=== PATIENT | female | born 1975 | race Caucasian/White ===

== ENCOUNTER 2017-01-14 17:08 | Observation (INO) | payer OTHER ==
[2017-01-14] MEDS ORDERED: ONDANSETRON 4 MG/2 ML VIAL IVPUSH ONE (17:21)
[2017-01-14] MEDS ORDERED: SODIUM CHLORIDE 0.9% 1000 ML INFUS.BAG IV ONE ×2 (17:21→18:24)
--- NOTE | 2017-01-14 17:21 | PDOC ---
History of Present Illness - General History Source: Patient Exam Limitations: Other (seizing) - History of Present Illness Initial Comments: 01/14/17 17:25 The patient is a 41 year old female with a significant past medical history of seizure disorder, presenting to the Emergency Department with abdominal pain for a few days. As per EMS, the patient called an ambulance for severe abdominal pain, when EMS arrived she was hunched over in pain. EMS reports that she then had a seizure, which resolved while in the ambulance. On arrival patient was possible seizing, or pseudo-seizing, and was seen on arrival. She admits to stabbing abdominal pain, 10/10 in intensity, toward the center of her abdomen which she can only describe as similar to when she had H pylori. She reports that she has thrown up 10 times over the past two days which she believes was food poisoning. The patient denies diarrhea, or constipation. Patient denies fever, cough, and chills. Patient denies dysuria. Surgical Hx: Csection, ovarian cyst <Kortney Barajas - Last Filed: 01/14/17 17:24> - General History Source: Patient <Arabella Graff - Last Filed: 01/14/17 18:46> <Marcia Leonard - Last Filed: 01/15/17 05:48> - General Stated Complaint: SEIZURE Time Seen by Provider: 01/14/17 17:15 Past History <Kortney Barajas - Last Filed: 01/14/17 17:24> - Past Medical History Disorders: Yes (ovarian cyst) Seizures: Yes - Surgical History Abdominal Surgery: Yes (RIGHT OVARY?) - Reproductive History (#): 4 Para: 3 - Psycho/Social/Smoking Cessation Hx Anxiety: Yes Suicidal Ideation: No Smoking Status: No Smoking History: Former smoker Have you smoked in the past 12 months: Yes Number of Cigarettes Smoked Daily: 3 If you are a former smoker, when did you quit?: 2 weeks 'Breaking Loose' booklet given: 05/16/13 Hx Alcohol Use: Yes (OCCASIONALLY) Drug/Substance Use Hx: No Substance Use Type: Alcohol Hx Substance Use Treatment: No <Arabella Graff - Last Filed: 01/14/17 18:46> <Marcia Leonard - Last Filed: 01/15/17 05:48> - Past Medical History Allergies/Adverse Reactions: Allergies Allergy/AdvReac Type Severity Reaction Status Date / Time fluticasone propionate Allergy Severe Verified 01/14/17 17:37 [From Advair Diskus] salmeterol xinafoate Allergy Severe Verified 01/14/17 17:37 [From Advair Diskus] Home Medications: Ambulatory Orders NK [No Known Home Medication] 01/14/17 Review of Systems - Review of Systems Able to Perform ROS?: Yes Comments:: 01/14/17 17:28 CONSTITUTIONAL: Absent: fever, chills, diaphoresis, generalized weakness, malaise, loss of appetite HEENT: Absent: rhinorrhea, nasal congestion, throat pain, throat swelling, difficulty swallowing, mouth swelling, ear pain, eye pain, visual Changes CARDIOVASCULAR: Absent: chest pain, syncope, palpitations, irregular heart rate, lightheadedness , peripheral edema RESPIRATORY: Absent: cough, shortness of breath, dyspnea with exertion, orthopnea, wheezing, stridor, hemoptysis GASTROINTESTINAL: Present: + abdominal pain, + nausea, + vomiting Absent: abdominal distension, diarrhea, constipation, melena, hematochezia GENITOURINARY: Absent: dysuria, frequency, urgency, hesitancy, hematuria, flank pain, genital pain MUSCULOSKELETAL: Absent: myalgia, arthralgia, joint swelling SKIN: Absent: rash, itching, pallor HEMATOLOGIC/IMMUNOLOGIC: Absent: easy bleeding, easy bruising, lymphadenopathy, frequent infections ENDOCRINE: Absent: unexplained weight gain, unexplained weight loss, heat intolerance, cold intolerance NEUROLOGIC: Present: + seizure as per EMS Absent: headache, focal weakness or paresthesias, dizziness, unsteady gait, mental status changes, bladder or bowel incontinence PSYCHIATRIC: Absent: anxiety, depression, suicidal or homicidal ideation, hallucinations. <Kortney Barajas - Last Filed: 01/14/17 17:24> *Physical Exam - Physical Exam Comments: 01/14/17 17:25 GENERAL: Well developed, well nourished. Awake and alert. In no acute distress. HEENT: Normocephalic, atraumatic. PERRLA, EOMI. No conjunctival pallor. Sclera are non- icteric. Moist mucous membranes. Oropharynx is clear. NECK: Supple. Full ROM. No JVD. Carotid pulses 2+ and symmetric, without bruits. No thyromegaly. No lymphadenopathy. CARDIOVASCULAR: Regular rate and rhythm. No murmurs, rubs, or gallops. Distal pulses are 2+ and symmetric. PULMONARY: No evidence of respiratory distress. Lungs clear to auscultation bilaterally. No wheezing, rales or rhonchi. ABDOMINAL: LLQ suprapubic tenderness, no rebound, no guarding. Soft. Non-distended. No organomegaly. Normoactive bowel sounds. MUSCULOSKELETAL Normal range of motion at all joints. No bony deformities or tenderness. No CVA tenderness. EXTREMITIES: Extremities warm and well perfused. No cyanosis. No clubbing. No edema. No calf tenderness. SKIN: Warm and dry. Normal capillary refill. No rashes. No jaundice. NEUROLOGICAL: Alert, awake, appropriate. Moving all four extremities. Cranial nerves 2-12 intact. Normoreflexic in the upper and lower extremities. Normal speech. PSYCHIATRIC: Cooperative. Good eye contact. Appropriate mood and affect. <oKrtney Barajas - Last Filed: 01/14/17 17:24> - Vital Signs Last Vital Signs Temp Pulse Resp BP Pulse Ox 98.5 F 83 16 105/72 100 01/14/17 17:20 01/14/17 19:33 01/14/17 19:33 01/14/17 19:33 01/14/17 19:33 <Marcia Leonard - Last Filed: 01/15/17 05:48> ED Treatment Course - LABORATORY CBC & Chemistry Diagram: 01/14/17 17:25 01/14/17 17:25 <Arabella Graff - Last Filed: 01/14/17 18:46> - LABORATORY CBC & Chemistry Diagram: 01/14/17 17:25 01/14/17 17:25 - ADDITIONAL ORDERS Additional order review: Laboratory Results 01/14/17 01/14/17 01/14/17 18:25 18:25 17:25 Sodium Potassium Chloride Carbon Dioxide Anion Gap BUN Creatinine Creat Clearance w eGFR Random Glucose Lactic Acid 5.7 H* Calcium Total Bilirubin AST ALT Alkaline Phosphatase Total Protein Albumin Urine Color Yellow Urine Appearance Cloudy Urine pH 8.0 D Ur Specific [place] 1.015 Urine Protein Negative Urine Glucose (UA) Negative Urine Ketones 1+ H Urine Blood Negative Urine Nitrite Negative Urine Bilirubin Negative Urine Urobilinogen Negative Ur Leukocyte Esterase Negative Urine HCG, Qual Negative Opiates Screen Negative Methadone Screen Negative Barbiturate Screen Negative Phencyclidine Screen Negative Ur Amphetamines Screen Negative MDMA (Ecstasy) Screen Negative Benzodiazepines Screen Negative Cocaine Screen Negative U Marijuana (THC) Screen Positive 01/14/17 17:25 Sodium 141 Potassium 3.7 Chloride 102 Carbon Dioxide 23 Anion Gap 16 BUN 9 D Creatinine 0.9 D Creat Clearance w eGFR > 60 Random Glucose 108 H Lactic Acid Calcium 9.6 Total Bilirubin 0.4 D AST 15 D ALT 16 D Alkaline Phosphatase 68 D Total Protein 7.7 Albumin 4.3 D Urine Color Urine Appearance Urine pH Ur Specific [place] Urine Protein Urine Glucose (UA) Urine Ketones Urine Blood Urine Nitrite Urine Bilirubin Urine Urobilinogen Ur Leukocyte Esterase Urine HCG, Qual Opiates Screen Methadone Screen Barbiturate Screen Phencyclidine Screen Ur Amphetamines Screen MDMA (Ecstasy) Screen Benzodiazepines Screen Cocaine Screen U Marijuana (THC) Screen 01/14/17 17:25 RBC 4.89 MCV 83.8 MCHC 32.9 RDW 14.9 D MPV 8.5 Neutrophils % 65.2 Lymphocytes % 26.3 D Monocytes % 6.4 Eosinophils % 1.4 Basophils % 0.7 - Medications Given in the ED: ED Medications Discontinued Medications Generic Name Dose Route Start Last Admin Trade Name Freq PRN Reason Stop Dose Admin Diphenhydramine HCl 25 mg 01/14/17 18:47 01/14/17 18:50 Benadryl Injection - IVPB 01/14/17 18:48 25 mg ONCE ONE Administration Lorazepam 2 mg 01/14/17 17:26 01/14/17 17:15 Ativan Injection - IM 01/14/17 17:27 2 mg ONCE ONE Administration Metoclopramide HCl 10 mg 01/14/17 18:47 01/14/17 18:50 Reglan Injection - IVPB 01/14/17 18:48 10 mg ONCE ONE Administration Ondansetron HCl 4 mg 01/14/17 17:21 01/14/17 17:30 Zofran Injection IVPUSH 01/14/17 17:22 4 mg ONCE ONE Administration Sodium Chloride 1,000 ml 01/14/17 17:21 01/14/17 17:30 Normal Saline - IV 01/14/17 17:22 1,000 ml ONCE ONE Administration Sodium Chloride 1,000 ml 01/14/17 18:24 01/14/17 19:28 Normal Saline - IV 01/14/17 18:25 1,000 ml ONCE ONE Administration <Marcia Leonard - Last Filed: 01/15/17 05:48> Medical Decision Making - Medical Decision Making 01/14/17 17:17 41 yo F with h/o siezure disorder, ovarian cyst, here with EMS co abdominal pain. pt states started today, has had several epsiodes of emesis. was hunched over when EMS arrived. pt states generalized pain, unable to characterize. states similar H Pylori pain. no diarrhea. no f/c no urinary complaints. no f/ c. no other complaints. on exam pt having seizure like activity on arrival. however was intermittently grabbing items during sieuzre like activity. lasted few minutes. no postictal period. immediately following awake, alert, skin warm and dry. CTAB no wheeze no crackles. heart RRR no mr/g/ abd soft c/o llq ttp. differential: siezur, pseudosiezure, electorlyte abnormlaity, uti, , diverticulitis, sbo. plan ct a/p labs level tox screen. ua ucg. 01/14/17 18:46 pt states she is not taking depakote any more. does not have a nuerologist and does not know the name of her primary doctor. <Arabella Graff - Last Filed: 01/14/17 18:46> - Medical Decision Making 01/14/17 21:55 I received pt on signout. She has had seizures today. She has known seizure hx ; neurologist is in [facility]; she is on no anti-seizure meds. She feels unwell. Abd pelvis CT ordered for her intractable vomiting and the results are pending. 01/14/17 23:28 Patient Name: Griselda Boyle THIS IS A PRELIMINARY REPORT FROM [facility] IN[facility]STIGATOR EXAM: CT abdomen and pelvis with intravenous contrast IMAGES: [id number] EXAM DATE AND TIME: 2017-01-14 20:25:04.0 REASON FOR EXAM: Left lower quadrant pain. Rule out diverticulitis COMPARISON: None. FINDINGS: There is no significant colonic diverticulosis or evidence of acute diverticulitis The appendix is not identified There is no bowel distention Partially collapsed cyst in the left ovary measuring 1.7 cm. There is a ventral hernia with a protruding segment of nonobstructed transverse colon No free air, free fluid or loculated collections The upper abdominal visceral organs are unremarkable The visualized lung bases are clear THIS DOCUMENT HAS BEEN ELECTRONICALLY SIGNED 01/15/17 05:44 Pt admitted to hospitalist for seizure disorder/uncontrolled seizures. I loaded her with IV Keppra. I ordered a head CT scan: Patient Name: Griselda Boyle THIS IS A PRELIMINARY REPORT FROM [facility] INVESTIGATOR IMAGES: 77 EXAM DATE AND TIME: 2017-01-14 23:35:40.0 EXAM: CT HEAD WITHOUT CONTRAST No acute brain parenchymal abnormality. No hemorrhage, mass or acute territorial infarct. Essentially clear visualized paranasal sinuses. Visualized mastoid air cells clear. THIS DOCUMENT HAS BEEN ELECTRONICALLY SIGNED Pt admitted, as she also has intractable vomiting. <Marcia Leonard - Last Filed: 01/15/17 05:48> *DC/Admit/Observation/Transfer - Attestations Scribe Attestion: 01/14/17 17:28 Documentation prepared by Kortney Barajas, acting as medical art therapist for Arabella Graff MD. <oKrtney Barajas - Last Filed: 01/14/17 17:24> <Arabella Graff - Last Filed: 01/14/17 18:46> - Discharge Dispostion Admit: Yes <Marcia Leonard - Last Filed: 01/15/17 05:48> Diagnosis at time of Disposition: Seizure, Nausea & vomiting, Intractable vomiting
[2017-01-14] MEDS ORDERED: LORAZEPAM CARPU-JECT 2 MG/ML DISP.SYRIN IM ONE (17:26)
[2017-01-14] MEDS ORDERED: ONDANSETRON 4 MG/2 ML VIAL ONE (17:27)
[2017-01-14 17:36] LABS: BASOPHIL 0.7 % (0-2.0); EOSINOPHIL 1.4 % (0-4.5); MCH 27.6 pg (25.7-33.7); MCHC 32.9 g/dl (32.0-36.0); MEAN CELL VOLUME 83.8 fl (80-96); MEAN PLT VOLUME 8.5 fl (7.5-11.1); NEUTROPHILS 65.2 % (42.8-82.8); PLATELET COUNT 242 K/MM3 (134-434); RDW 14.9 % (11.6-15.6); WHITE BLOOD COUNT 9.2 K/mm3 (4.0-10.0)
[2017-01-14 18:00] LABS: ALBUMIN 4.3 g/dl (3.4-5.0); ANION GAP 16 (8-16); BILIRUBIN,TOTAL 0.4 mg/dL (0.2-1.0); CALCIUM 9.6 mg/dL (8.5-10.1); CO2 23 mmol/L (21-32); COCKROFT - GAULT 0; CREATININE 0.9 mg/dL (0.55-1.02); GLUCOSE,RANDOM 108 mg/dL (74-106); SGOT/AST 15 U/L (15-37); SGPT/ALT 16 U/L (12-78); TOT PROT 7.7 g/dl (6.4-8.2)
[2017-01-14 18:01] LABS: ALK PHOS 68 U/L (45-117)
[2017-01-14 18:38] LABS: URINE APPEARANCE CLOUDY; URINE BILIRUBIN NEGATIVE (NEGATIVE); URINE BLOOD NEGATIVE (NEGATIVE); URINE COLOR YELLOW; URINE GLUCOSE (UA) NEGATIVE (NEGATIVE); URINE KETONE 1+ (NEGATIVE); URINE LEUK ESTERASE NEGATIVE (NEGATIVE); URINE NITRITE NEGATIVE (NEGATIVE); URINE PROTEIN NEGATIVE (NEGATIVE); URINE UROBILINOGEN NEGATIVE E.U./dl (0.2-1.0)
[2017-01-14] MEDS ORDERED: METOCLOPRAMIDE HCL INJECTION 10 MG/2 ML VIAL IVPB ONE (18:47)
[2017-01-14 18:48] LABS: URINE MARIJUANA THC POSITIVE ng/ml (CUTOFF=50)
[2017-01-14] MEDS ORDERED: METOCLOPRAMIDE HCL INJECTION 10 MG/2 ML VIAL ONE (18:50)
[2017-01-14] MEDS ORDERED: levETIRAcetam 500 MG/5 ML INJECTION VIAL IVPB ONE ×2 (23:22→23:33)
--- NOTE | 2017-01-14 23:55 | PN ---
<Shubham Chaney - Last Filed: 01/14/17 23:55> Teaching Attending Note Name of Resident: Doc Lozano ATTENDING PHYSICIAN STATEMENT I saw and evaluated the patient. I reviewed the resident's note and discussed the case with the resident. I agree with the resident's findings and plan as documented. SUBJECTIVE: OBJECTIVE: ASSESSMENT AND PLAN: <Jaison Dunlap - Last Filed: 01/15/17 02:16> Teaching Attending Note Name of Resident: Doc Lozano ATTENDING PHYSICIAN STATEMENT I saw and evaluated the patient. I reviewed the resident's note and discussed the case with the resident. I agree with the resident's findings and plan as documented. SUBJECTIVE: 41 year old female, with a significant past medical history of seizure disorders , H. Pylori, and ovarian cysts, who presents to the ED with abdominal pain, nausea, vomiting and a witnessed seizure onset today around 3pm. She notes that the abdominal pain is localized in the left upper quadrant. She also notes that she had multiple vomiting episodes that were nonbloody and nonbilious. Prior to the symptoms beginning, the patient had eaten a croissant, rice, mac and cheese and collar green. Others in her household ate the same food without any adverse effects. She denies any sick contacts or ingesting any uncooked food. When EMS was called, the patient had a seizure that was witnessed by her daughter, for which the patient did not have a post ictal period of bite her tongue. The patient states that she stopped taking her Seizure medications due to a , without talking to her neurologist prior. The patient's last seizure according to her family was sometime within the last 6 months. The patient smokes marijuana every other day but denies any other drug use. Patient denies fever, chills, chest pain, shortness of breath, headache and dizziness. OBJECTIVE: GENERAL: (+) Drowzy. In no acute distress HEENT: (+) Pin point pupils. Atraumatic. Moist mucosa. No JVD. No tongue bites noted. LUNGS: No distress, speaks full sentences, clear to auscultation bilaterally HEART: Regular rate and rhythm, normal S1 and S2, no murmurs, rubs or gallops, peripheral pulses normal and equal bilaterally. ABDOMEN: Soft, nontender, normoactive bowel sounds. No guarding, no rebound. No masses EXTREMITIES: Normal inspection, Normal range of motion, no edema. No clubbing or cyanosis. NEUROLOGICAL: Normal speech, no focal sensorimotor deficits SKIN: Warm, Dry, normal turgor, no rashes or lesions noted. CBCD WBC 9.2 K/mm3 (4.0-10.0) 01/14/17 17:25 RBC 4.89 M/mm3 (3.60-5.2) 01/14/17 17:25 Hgb 13.5 GM/dL (10.7-15.3) D 01/14/17 17:25 Hct 41.0 % (32.4-45.2) 01/14/17 17:25 MCV 83.8 fl (80-96) 01/14/17 17:25 MCHC 32.9 g/dl (32.0-36.0) 01/14/17 17:25 RDW 14.9 % (11.6-15.6) D 01/14/17 17:25 Plt Count 242 K/MM3 (134-434) D 01/14/17 17:25 MPV 8.5 fl (7.5-11.1) 01/14/17 17:25 CMP Sodium 141 mmol/L (136-145) 01/14/17 17:25 Potassium 3.7 mmol/L (3.5-5.1) 01/14/17 17:25 Chloride 102 mmol/L (98-107) 01/14/17 17:25 Carbon Dioxide 23 mmol/L (21-32) 01/14/17 17:25 Anion Gap 16 (8-16) 01/14/17 17:25 BUN 9 mg/dL (7-18) D 01/14/17 17:25 Creatinine 0.9 mg/dL (0.55-1.02) D 01/14/17 17:25 Creat Clearance w eGFR > 60 (>60) 01/14/17 17:25 Calcium 9.6 mg/dL (8.5-10.1) 01/14/17 17:25 Total Bilirubin 0.4 mg/dL (0.2-1.0) D 01/14/17 17:25 AST 15 U/L (15-37) D 01/14/17 17:25 ALT 16 U/L (12-78) D 01/14/17 17:25 Alkaline Phosphatase 68 U/L (45-117) D 01/14/17 17:25 Total Protein 7.7 g/dl (6.4-8.2) 01/14/17 17:25 Albumin 4.3 g/dl (3.4-5.0) D 01/14/17 17:25 CT abdomen and pelvis with intravenous contrast Impression: There is no significant colonic diverticulosis or evidence of acute diverticulitis The appendix is not identified There is no bowel distention Partially collapsed cyst in the left ovary measuring 1.7 cm. There is a ventral hernia with a protruding segment of nonobstructed transverse colon No free air, free fluid or loculated collections The upper abdominal visceral organs are unremarkable The visualized lung bases are clear. Head CT Impression: No acute brain parenchymal abnormality. No hemorrhage, mass or acute territorial infarct. Essentially clear visualized paranasal sinuses. Visualized mastoid air cells clear. ASSESSMENT AND PLAN 1. Acute episode of nausea and vomiting after ingesting rice and croissant. Likely induced by preformed toxin from food, may also be viral gastroenteritis, however less likely because of lack of fever and diarrhea. CT scan abdomen was normal. Differential diagnosis also includes marijuana hyperemesis syndrome. - IVF hydration. - Zofran PRN for nausea and vomiting. - NPO - Monitor Electrolytes 2. Seizure disorder vs. Psuedoseizure. Maybe seizure induced by gastroenteritis especially since patient not taking AEDs and not following with neurologist. However lack of postictal state and other symptoms such as tongue biting and bladder / bowel incontinence favors pseudoseizures. S/P 2 mg of Ativan IM and 1500 mg IV Keppra in the ER. Negative CT head and normal electrolytes. Seizures may have been caused by synthetic marijuana. - Neuro check Q4 hours - Neurology consult. - Ativan 2 mg IV PRN if seizures - Aspiration precautions - Test for synthetic canabinoids DVT prophylaxes - SCDs - Admitted to Obs - NPO for now Documentation prepared by Jaison Dunlap, acting as forensic medical examiner for Shubham Chaney MD.
[2017-01-15] MEDS ORDERED: METOCLOPRAMIDE HCL INJECTION 10 MG/2 ML VIAL IVPB SCH ×2 (00:30→00:58)
[2017-01-15] MEDS ORDERED: D5-1/2NS+20 MEQ KCL - 1,000 ML IV SCH (00:30)
--- NOTE | 2017-01-15 00:58 | HP ---
CHIEF COMPLAINT: Abdominal pain, nausea, vomiting, seizure PCP: HISTORY OF PRESENT ILLNESS: 41 year old female with pmh of seizure disorder and H. Pilori presents to the ED with complaint of abdominal pain, nausea, vomiting and seizure. the symptoms started this afternoon at 3pm with nausea and abdominal pain, left upper quadrant, non radiating, stabbing in nature 05/30, no real aggravating of alleviating factor. The patient said she had similar pain when she had an h. Pilori infection and was subsequently treated. Pt patient vomited 3 times a couple hours after with food filled fluid, no bloody, no bilious vomiting. The patient did not eat anything different expect for croissant today, she ate the rice with collar green mac and cheese. Pt denies any sick contact, no fresh water drinking, no new medication, no recent antibiotic food, no raw food, raw meat or seafood. No fever, or chills, no chest pain, palpitation or shortness of breath, no diarrhea or constipation, LBM was yesterday brown and soft, no melena or hematochezia. EMS was called [place] to severe abdominal pain and vomiting , pt had a witnessed seizure tonic clonic in nature per daughter description. Pt did not have any post ictal phase, no injury, no lip bitting, no incontinence. ER course was notable for: (1) CBC, CMP, Lactate 5.7 (2) Keppra 1500mg Iv once (3) CT head, CXR Recent Travel: none PAST MEDICAL HISTORY: seizure disorder and H. Pilori PAST SURGICAL HISTORY: Social History: Smoking:no cigarette Alcohol:denies Drugs: Marijuana Family History: none Allergies fluticasone propionate [From Advair Diskus] Allergy (Severe, Verified 01/14/17 17:37) salmeterol xinafoate [From Advair Diskus] Allergy (Severe, Verified 01/14/17 17: 37) HOME MEDICATIONS: Home Medications Medication Instructions Recorded NK [No Known Home Medication] 01/14/17 REVIEW OF SYSTEMS CONSTITUTIONAL: malaise Absent: fever, chills, diaphoresis, generalized weakness, loss of appetite, weight change HEENT: Absent: rhinorrhea, nasal congestion, throat pain, throat swelling, difficulty swallowing, mouth swelling, ear pain, eye pain, visual changes CARDIOVASCULAR: Absent: chest pain, syncope, palpitations, irregular heart rate, lightheadedness , peripheral edema RESPIRATORY: Absent: cough, shortness of breath, dyspnea with exertion, orthopnea, wheezing, stridor, hemoptysis GASTROINTESTINAL:abdominal pain, nausea, vomiting, Absent: abdominal distension, diarrhea, constipation, melena, hematochezia GENITOURINARY: Absent: dysuria, frequency, urgency, hesitancy, hematuria, flank pain, genital pain MUSCULOSKELETAL: Absent: myalgia, arthralgia, joint swelling, back pain, neck pain SKIN: Absent: rash, itching, pallor HEMATOLOGIC/IMMUNOLOGIC: Absent: easy bleeding, easy bruising, lymphadenopathy, frequent infections ENDOCRINE: Absent: unexplained weight gain, unexplained weight loss, heat intolerance, cold intolerance NEUROLOGIC: Absent: headache, focal weakness or paresthesias, dizziness, unsteady gait, seizure, mental status changes, bladder or bowel incontinence PSYCHIATRIC: Absent: anxiety, depression, suicidal or homicidal ideation, hallucinations. PHYSICAL EXAMINATION Vital Signs - 24 hr 01/14/17 01/14/17 01/14/17 17:20 18:20 19:33 Temperature 98.5 F Pulse Rate 91 H Pulse Rate [ 76 83 Apical] Respiratory 22 16 16 Rate Blood Pressure 125/113 Blood Pressure 129/90 105/72 [Left Arm] O2 Sat by Pulse 100 100 100 Oximetry (%) 01/14/17 01/14/17 21:00 23:00 Temperature 98.9 F 99 F Pulse Rate Pulse Rate [ 81 80 Apical] Respiratory 16 16 Rate Blood Pressure Blood Pressure 114/79 118/50 [Left Arm] O2 Sat by Pulse 99 99 Oximetry (%) GENERAL: Awake, alert, and fully oriented, in no acute distress. HEAD: Normal with no signs of trauma. EYES: Pupils equal, round and reactive to light, extraocular movements intact, sclera anicteric, conjunctiva clear. No lid lag. EARS, NOSE, THROAT: Ears normal, nares patent, oropharynx clear without exudates. Moist mucous membranes. NECK: Normal range of motion, supple without lymphadenopathy, JVD, or masses. LUNGS: Breath sounds equal, clear to auscultation bilaterally. No wheezes, and no crackles. No accessory muscle use. HEART: Regular rate and rhythm, normal S1 and S2 without murmur, rub or gallop. ABDOMEN: Soft, nontender, not distended, normoactive bowel sounds, no guarding, no rebound, no masses. No hepatomegaly or splenomegaly. MUSCULOSKELETAL: Normal range of motion at all joints. No bony deformities or tenderness. No CVA tenderness. UPPER EXTREMITIES: 2+ pulses, warm, well-perfused. No cyanosis. No clubbing. No peripheral edema. LOWER EXTREMITIES: 2+ pulses, warm, well-perfused. No calf tenderness. No peripheral edema. NEUROLOGICAL: Cranial nerves II-XII intact. Normal speech. gait normal observed. normal and equal strength in al ext, normal sensation to light touch, normal reflex in all ext PSYCHIATRIC: Cooperative. Good eye contact. Restless. sleepy after receiving ativan SKIN: Warm, dry, normal turgor, no rashes or lesions noted, normal capillary refill. Laboratory Results - last 24 hr 01/14/17 01/14/17 01/14/17 17:25 17:25 17:25 WBC 9.2 RBC 4.89 Hgb 13.5 D Hct 41.0 MCV 83.8 MCHC 32.9 RDW 14.9 D Plt Count 242 D MPV 8.5 Neutrophils % 65.2 Lymphocytes % 26.3 D Monocytes % 6.4 Eosinophils % 1.4 Basophils % 0.7 Sodium 141 Potassium 3.7 Chloride 102 Carbon Dioxide 23 Anion Gap 16 BUN 9 D Creatinine 0.9 D Creat Clearance w eGFR > 60 Random Glucose 108 H Lactic Acid 5.7 H* Calcium 9.6 Total Bilirubin 0.4 D AST 15 D ALT 16 D Alkaline Phosphatase 68 D Total Protein 7.7 Albumin 4.3 D Urine Color Urine Appearance Urine pH Ur Specific [place] Urine Protein Urine Glucose (UA) Urine Ketones Urine Blood Urine Nitrite Urine Bilirubin Urine Urobilinogen Ur Leukocyte Esterase Urine HCG, Qual Opiates Screen Methadone Screen Barbiturate Screen Phencyclidine Screen Ur Amphetamines Screen MDMA (Ecstasy) Screen Benzodiazepines Screen Cocaine Screen U Marijuana (THC) Screen 01/14/17 01/14/17 01/14/17 18:25 18:25 23:25 WBC RBC Hgb Hct MCV MCHC RDW Plt Count MPV Neutrophils % Lymphocytes % Monocytes % Eosinophils % Basophils % Sodium Potassium Chloride Carbon Dioxide Anion Gap BUN Creatinine Creat Clearance w eGFR Random Glucose Lactic Acid 0.8 Calcium Total Bilirubin AST ALT Alkaline Phosphatase Total Protein Albumin Urine Color Yellow Urine Appearance Cloudy Urine pH 8.0 D Ur Specific [place] 1.015 Urine Protein Negative Urine Glucose (UA) Negative Urine Ketones 1+ H Urine Blood Negative Urine Nitrite Negative Urine Bilirubin Negative Urine Urobilinogen Negative Ur Leukocyte Esterase Negative Urine HCG, Qual Negative Opiates Screen Negative Methadone Screen Negative Barbiturate Screen Negative Phencyclidine Screen Negative Ur Amphetamines Screen Negative MDMA (Ecstasy) Screen Negative Benzodiazepines Screen Negative Cocaine Screen Negative U Marijuana (THC) Screen Positive CBC, BMP 01/14/17 17:25 01/14/17 17:25 Rigth ovarian Cyst: There is no significant colonic diverticulosis or evidence of acute diverticulitis The appendix is not identified There is no bowel distention Partially collapsed cyst in the left ovary measuring 1.7 cm. There is a ventral hernia with a protruding segment of non-obstructed transverse colon No free air, free fluid or loculated collections The upper abdominal visceral organs are unremarkable The visualized lung bases are clear ASSESSMENT/PLAN: 41 year old female with pmh of seizure disorder and H. Pilori presents to the ED with complaint of abdominal pain, nausea, vomiting and seizure. Seizure disorder likely due to medication non-compliance vs pseudo seizure witnessed seizure by EMS and daughter, sound like tonic clonic per daughter description Pt with h/o seizure disorder, unknown when was last seizure but was less than 6 months ago per daughter Pt is not any seizure medication for the last one year and half, was previously on Tegretol Pt is a habitual marijuana user and synthetic marijuana has been associated with seizure CT head negative Seizure precaution received Keppra in ED 1500mg IV once neurology consult Dr Kebede Neurology to decide on seizure medication Obtain records from prior neurologist Abdominal and vomiting likely gastroenteritis from preformed toxin versus viral Had Macaroni and cheese, rice, collar green and croissant today CT abdomen and pelvis did not show any acute findings No electrolytes imbalances negative UA NPO EKG D5 1/2NS 20meq Kcl at 100ml/h Reglan 10mg IV q6h Zofran prn Lactic acidosis likely due to seizure (resolved) Lactic acid 5.7 received 2 Liter normal saline in ED Upon repeat lactic acid 0.8 FEN Fluid: [id number] at 125ml/h Electrolytes: chemistry in am Nutrition: NPO DVT prophylaxis: SCD Disposition: Observation in [facility], pending neurology consult for seizure management Visit type - Emergency Visit Emergency Visit: Yes ED Registration Date: 05/27/17 Care time: The patient presented to the Emergency Department on the above date and was hospitalized for further evaluation of their emergent condition. - New Patient This patient is new to me today: Yes Date on this admission: 01/15/17 - Critical Care Critical Care patient: No
[2017-01-15] MEDS: METOCLOPRAMIDE HCL INJECTION 10 MG/2 ML VIAL IVPB SCH ×4 (03:13→21:23)
[2017-01-15 03:32] VITALS: BMI 25.0
[2017-01-15 07:53] LABS: CALCIUM 8.2 mg/dL (8.5-10.1); COCKROFT - GAULT 152.5835; CREATININE 0.5 mg/dL (0.55-1.02); MAGNESIUM 2.1 mg/dL (1.8-2.4); PHOSPHOROUS 2.4 mg/dL (2.5-4.9)
--- NOTE | 2017-01-15 12:54 | PN ---
Physical Exam: SUBJECTIVE: Patient seen and examined. She feels tired. Abdominal pain and nausea are better. OBJECTIVE: Vital Signs Period Temp Pulse Resp BP Sys/Wahl Pulse Ox Last 24 Hr 98.3 F-98.6 F 64-77 16-20 90-118/45-78 96-100 GENERAL: The patient is awake, alert, and fully oriented, in no acute distress. LUNGS: Breath sounds equal, clear to auscultation bilaterally, no wheezes, no crackles, no accessory muscle use. HEART: Regular rate and rhythm, S1, S2 without murmur, rub or gallop. ABDOMEN: Soft, nontender, nondistended, normoactive bowel sounds, no guarding, no rebound, no hepatosplenomegaly, no masses. EXTREMITIES: 2+ pulses, warm, well-perfused, no edema. NEUROLOGICAL: Cranial nerves II through XII grossly intact. Normal speech, gait not observed. Laboratory Results - last 24 hr 01/15/17 06:15 Sodium 137 Potassium 3.5 Chloride 102 Carbon Dioxide 23 Anion Gap 12 BUN 4 L D Creatinine 0.5 L D Random Glucose 141 H D Calcium 8.2 L Phosphorus 2.4 L D Magnesium 2.1 Active Medications Generic Name Dose Route Start Last Admin Trade Name Freq PRN Reason Stop Dose Admin Potassium Chloride/Dextrose/Sod Cl 1,000 mls @ 100 mls/hr 01/15/17 00:30 00:40 D5-1/2ns+20 Meq Kcl - IV 100 mls/hr ASDIR TRACE Administration Metoclopramide HCl 10 mg 01/15/17 00:59 01/15/17 09:04 Reglan Injection - IVPB 10 mg Q6H-IV TRACE Administration Ondansetron HCl 4 mg 01/15/17 00:29 Zofran Injection IVPB Q6H PRN NAUSEA ASSESSMENT/PLAN: This is a 41-year-old woman with a history of seizure disorder and H. pylori who presented to the ER with abdominal pain, nausea, vomiting followed by seizure activity. 1. Seizure - Patient has been off Tegretol for > 1 year - Given Keppra in ER - Awaiting neurology consult 2. Abdominal pain, nausea and vomiting likely secondary to gastroenteritis - Improved - Start clear liquid diet 3. Lactic acidemia secondary to seizure - Improved Visit type - Emergency Visit Emergency Visit: Yes ED Registration Date: 01/14/17 Care time: The patient presented to the Emergency Department on the above date and was hospitalized for further evaluation of their emergent condition. - New Patient This patient is new to me today: Yes Date on this admission: 01/15/17 - Critical Care Critical Care patient: No - Discharge Referral Referred to [facility] No
[2017-01-15] MEDS: D5-1/2NS+20 MEQ KCL - 1,000 ML IV SCH (14:25)
[2017-01-16] MEDS: METOCLOPRAMIDE HCL INJECTION 10 MG/2 ML VIAL IVPB SCH ×2 (03:22→08:18)
[2017-01-16] MEDS: D5-1/2NS+20 MEQ KCL - 1,000 ML IV SCH ×3 (03:22→20:51)
--- NOTE | 2017-01-16 09:20 | PN ---
Teaching Attending Note Name of Resident: Vonnie Biggs ATTENDING PHYSICIAN STATEMENT I saw and evaluated the patient. I reviewed the resident's note and discussed the case with the resident. I agree with the resident's findings and plan as documented. SUBJECTIVE: Patient has no complaints. OBJECTIVE: Vital Signs Period Temp Pulse Resp BP Sys/Wahl Pulse Ox Last 24 Hr 98.2 F-99.1 F 51-80 18-20 85-100/51-57 99-100 GENERAL: The patient is awake, alert, and fully oriented, in no acute distress. LUNGS: Breath sounds equal, clear to auscultation bilaterally, no wheezes, no crackles, no accessory muscle use. HEART: Regular rate and rhythm, S1, S2 without murmur, rub or gallop. ABDOMEN: Soft, nontender, nondistended, normoactive bowel sounds, no guarding, no rebound, no hepatosplenomegaly, no masses. EXTREMITIES: 2+ pulses, warm, well-perfused, no edema. NEUROLOGICAL: Cranial nerves II through XII grossly intact. Normal speech, gait not observed. ASSESSMENT AND PLAN: This is a 41-year-old woman with a history of seizure disorder and H. pylori who presented to the ER with abdominal pain, nausea, vomiting followed by seizure activity. 1. Seizure - Patient has been off Tegretol for > 1 year - Given Felicity in ER - Awaiting neurology consult 2. Abdominal pain, nausea and vomiting likely secondary to gastroenteritis - Improved - Advance diet 3. Lactic acidemia secondary to seizure - Improved
[2017-01-16] MEDS: ONDANSETRON 4 MG/2 ML VIAL IVPB PRN ×2 (09:25→21:07)
--- NOTE | 2017-01-16 09:32 | EKG ---
Test Reason : Blood Pressure : / mmHG Vent. Rate : 079 BPM Atrial Rate : 079 BPM P-R Int : 158 ms QRS Dur : 090 ms QT Int : 392 ms P-R-T Axes : 054 002 010 degrees QTc Int : 449 ms SINUS RHYTHM WITH MARKED SINUS ARRHYTHMIA OTHERWISE NORMAL ECG NONSPECIFIC T WAVE ABNORMALITY WHEN COMPARED WITH ECG OF 18-MAR-2014 04:19, NONSPECIFIC T WAVE ABNORMALITY IS NOW PRESENT Confirmed by ENIO MARROQUIN, DANIEL ([id number]) on 01/16/2017 9:32:28 AM Referred By: Confirmed By:DANIEL STEEN MD
[2017-01-16] MEDS ORDERED: LORazepam 2 MG/ML SDV VIAL ONE (12:53)
[2017-01-16] MEDS: LORAZEPAM CARPU-JECT 2 MG/ML DISP.SYRIN IVPUSH ONE ×2 (13:00→13:42)
[2017-01-16] MEDS ORDERED: METOCLOPRAMIDE HCL INJECTION 10 MG/2 ML VIAL IVPB ONE (13:00)
[2017-01-16] MEDS ORDERED: levETIRAcetam 500 MG/5 ML INJECTION VIAL IVPB ONE (13:01)
--- NOTE | 2017-01-16 13:05 | PN ---
Physical Exam: SUBJECTIVE: Patient seen and examined by me at bedside. Patient reports she still has nausea and vomiting with lightheadedness from the nausea. She reports being off her medications from a year ago after having her child. Otherwise, patient denies fever, chills, shortness of breath, chest pain, palpitations. OBJECTIVE: Vital Signs Period Temp Pulse Resp BP Sys/Wahl Pulse Ox Last 24 Hr 98.2 F-99.1 F 51-80 18-20 85-100/51-57 99-100 GENERAL: The patient is awake, alert, and fully oriented, in no acute distress. LUNGS: Breath sounds equal, clear to auscultation bilaterally, no wheezes, no crackles, no accessory muscle use. HEART: Regular rate and rhythm, S1, S2 without murmur, rub or gallop. ABDOMEN: Soft, nontender, nondistended, normoactive bowel sounds, no guarding, no rebound, no hepatosplenomegaly, no masses. EXTREMITIES: 2+ pulses, warm, well-perfused, no edema. NEUROLOGICAL: Motor strength 5/5 throughout, sensory intact Normal speech. Active Medications Generic Name Dose Route Start Last Admin Trade Name Freq PRN Reason Stop Dose Admin Potassium Chloride/Dextrose/Sod Cl 1,000 mls @ 75 mls/hr 01/15/17 14:05 03:22 D5-1/2ns+20 Meq Kcl - IV 75 mls/hr ASDIR TRACE Administration Levetiracetam 1,000 mg 01/16/17 13:01 Keppra Injection - IVPB 01/16/17 13:02 ONCE ONE Levetiracetam 1,000 mg 01/16/17 22:00 Keppra Injection - IVPB BID TRACE Ondansetron HCl 4 mg 01/15/17 00:29 01/16/17 09:25 Zofran Injection IVPB 4 mg Q6H PRN Administration NAUSEA ASSESSMENT/PLAN: Patient is a 41 year old female with a PMHx of seizure disorder, possible epilepsy?, who has been off her medications for a year who presented with gastroenteritis symptoms and then had seizure activities. Patient admitted for further management and monitoring. Seizure Disorder -Possible Epilepsy -Has been off Tegretol for over a year after delivering -Was given a loading dose of 1500mg Keppra -Neurology consult placed -Begin Keppra 725mg BID Abdominal pain, Nausea, Vomiting -Likely secondary to Gastroenteritis -Continues to vomit -Zofran 4mg IVPB Q6H PRN -IV Fluids with D5-NS @75mls/hr -Advance diet as tolerated F/E/N -IV Fluids with D5-NS @75mls/hr -Electrolytes wnl -NPO Prophylaxis -Low risk. EAM Disposition -Continues to have seizures. Will give Keppra Visit type - Emergency Visit Emergency Visit: Yes ED Registration Date: 01/14/17 Care time: The patient presented to the Emergency Department on the above date and was hospitalized for further evaluation of their emergent condition. - New Patient This patient is new to me today: Yes Date on this admission: 01/17/17 - Critical Care Critical Care patient: No
--- NOTE | 2017-01-16 13:05 | RAPID ---
Physical Examination Vital Signs: Vital Signs Temperature 98.5 F 01/16/17 06:00 Pulse Rate 51 L 01/16/17 06:00 Respiratory Rate 20 01/16/17 08:00 Blood Pressure 86/53 01/16/17 06:00 O2 Sat by Pulse Oximetry (%) 99 01/16/17 08:00 Labs: CBC, BMP 01/15/17 06:15 Rapid Response - Rapid Response Assessment: Rapid response called. Patient was found on the floor by the house keeper having seizures and when the nurse tech and slubber machine operator lifted patient to the bed, she was no longer seizing. Patient then began vomiting with a total of 400cc of bile and food. Patient was able to speak and reports hitting the left side of her head. Vitals: BP- 131/63 HR- 96 O2- 99%RA PHYSICAL EXAM: HEART: tachycardic with regular rhythm LUNGS: CTA B/L ABDOMEN: Soft nontender nondistended NEURO: Speech normal. PERRL, Sensory intact A&P Recurrent Seizures -Ativan 2mg given -Keppra 1000mg IV given -HEAD CT Intractable vomiting -Continue Zofran 4mg PRN -NPO -Protonix 40mg IV -D5-NS with potassium
[2017-01-16] MEDS ORDERED: LORAZEPAM CARPU-JECT 2 MG/ML DISP.SYRIN IVPUSH ONE ×2 (13:08→17:35)
[2017-01-16] MEDS ORDERED: ONDANSETRON 4 MG/2 ML VIAL IVPB ONE (13:16)
--- NOTE | 2017-01-16 17:04 | CON.NEURO ---
Consult Consult Specialty:: Neurology Referred by:: Kalyan/Shiv Reason for Consultation:: Epilepsy - History of Present Illness Chief Complaint: Seizure in patient off medication History of Present Illness: Patient states that she had been followed by Dr. Rodríguez in [facility] for her epilepsy, which she's had since age 16. She doesn't know much about the type of seizure or what medications she's been on except that she was on tegretol which she stopped almost 12 months ago because she was . She didn't tell me whether she had discussed this with Dr. Rodríguez or not. She didn't tell me about her workup. She was very uncomfortable with nausea and I had to cajole her to provide even this much information. 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 ...LMP: 12/25/16 ...: No Additional Medical History: History of epilepsy - Past Surgical History Past Surgical History: Yes: None - Alcohol/Substance Use Hx Alcohol Use: Yes (OCCASIONALLY) - Smoking History Smoking history: Former smoker Have you smoked in the past 12 months: No Aproximately how many cigarettes per day: 3 If you are a former smoker, when did you quit?: 2 weeks Home Medications - Allergies Allergies/Adverse Reactions: Allergies Allergy/AdvReac Type Severity Reaction Status Date / Time fluticasone propionate Allergy Severe Verified 01/14/17 17:37 [From Advair Diskus] salmeterol xinafoate Allergy Severe Verified 01/14/17 17:37 [From Advair Diskus] - Home Medications Home Medications: Ambulatory Orders NK [No Known Home Medication] 01/14/17 Family Disease History - Family Disease History Family Disease History: Diabetes: Father, Heart Disease: Mother Physical Exam-Neuro Vital Signs: Vital Signs Temperature 98.1 F 01/16/17 14:00 Pulse Rate 72 01/16/17 14:00 Respiratory Rate 20 01/16/17 13:00 Blood Pressure 139/74 01/16/17 14:00 O2 Sat by Pulse Oximetry (%) 99 01/16/17 08:00 Constitutional: Yes: Moderate Distress Labs: CBC, BMP 01/15/17 06:15 - Neuro Exam Level Of Consciousness: Yes: Alert Cranial Nerves II-XII Intact: Yes DTR's: 2+ Left Bicep, 2+ Right Bicep, 2+ Left Tricep, 2+ Right Tricep, 2+ Left Brachioradialis, 2+ Right Brachioradialis, 2+ Left Achilles, 2+ Right Achilles Babinski: Absent Response to light touch: Normal Motor Strength: 5/5: Left Arm, Right Arm, Left Leg, Right Leg NIH Stroke Scale - Total Score NIH Stroke Scale Score: 0 Problem List - Problems (1) Seizure Assessment/Plan: Little information available. Recommend reaching Dr. Rodríguez tomorrow when his office is open and he'll be able to provide background information and advise as to whether to restart Tegretol or another medication. Thanks. Code(s): R56.9 - UNSPECIFIED CONVULSIONS
[2017-01-16] MEDS ORDERED: LORAZEPAM CARPU-JECT 2 MG/ML DISP.SYRIN ONE (17:35)
--- NOTE | 2017-01-16 18:34 | RAPID ---
Physical Examination Vital Signs: Vital Signs Temperature 98.1 F 01/16/17 14:00 Pulse Rate 72 01/16/17 14:00 Respiratory Rate 20 01/16/17 13:00 Blood Pressure 139/74 01/16/17 14:00 O2 Sat by Pulse Oximetry (%) 99 01/16/17 08:00 Findings/Remarks: Rapid response called. Patient again became very nauseous, began vomiting followed by seizure activity. She is currently awake and restless. She complains of burning in her chest. Constitutional: Yes: Moderate Distress Cardiovascular: Yes: Regular Rate and Rhythm, S1, S2 Respiratory: Yes: Regular, CTA Bilaterally Gastrointestinal: Yes: Normal Bowel Sounds, Soft. No: Distention, Tenderness Edema: No Peripheral Pulses WNL: Yes Neurological: Yes: Alert, Oriented ...Motor Strength: WNL Labs: CBC, BMP 01/15/17 06:15 Rapid Response - Rapid Response Assessment: 1. Recurrent seizures 2. Intractable nausea and vomiting Plan: 1. Ativan 2 mg IV x 1 2. Keppra 1000 mg IV given earlier after first seizure 3. Start Keppra 750 mg IV q12h 4. Urine drug screen - states she last used marijuana 2 days ago, denies other drug use 5. NPO 6. Protonix 40 mg IV daily 7. Continue Zofran as needed
[2017-01-16] MEDS: PANTOPRAZOLE SODIUM 100 ML IVPB SCH (18:57)
[2017-01-16] MEDS ORDERED: levETIRAcetam 500 MG/5 ML INJECTION VIAL IVPB SCH ×2 (22:00)
[2017-01-16 22:32] LABS: URINE MARIJUANA THC POSITIVE ng/ml (CUTOFF=50)
[2017-01-17 07:05] LABS: MCH 28.3 pg (25.7-33.7); MCHC 33.8 g/dl (32.0-36.0); MEAN CELL VOLUME 83.6 fl (80-96); MEAN PLT VOLUME 8.6 fl (7.5-11.1); PLATELET COUNT 191 K/MM3 (134-434); RDW 14.9 % (11.6-15.6); WHITE BLOOD COUNT 8.8 K/mm3 (4.0-10.0)
[2017-01-17 07:29] LABS: ALBUMIN 3.4 g/dl (3.4-5.0); ANION GAP 5 (8-16); CALCIUM 8.6 mg/dL (8.5-10.1); CO2 30 mmol/L (21-32); CREATININE 0.7 mg/dL (0.55-1.02); GLUCOSE,RANDOM 83 mg/dL (74-106); SGOT/AST 17 U/L (15-37); SGPT/ALT 13 U/L (12-78)
[2017-01-17 07:31] LABS: ALK PHOS 43 U/L (45-117); BILIRUBIN,TOTAL 0.6 mg/dL (0.2-1.0)
--- NOTE | 2017-01-17 08:49 | PN ---
Progress Note, Physician History of Present Illness: seizure noted yesterday slight bruising left ear area , no open contusions HD CT 01/16/17--noted, no new pathology was on keppra 750 BID at time. HX of tegretol but stopped. - Current Medication List Current Medications: Active Medications Potassium Chloride/Dextrose/Sod Cl (D5-1/2ns+20 Meq Kcl -) 1,000 mls @ 75 mls/ hr IV ASDIR TRACE Last Admin: 01/16/17 20:51 Dose: 75 mls/hr Pantoprazole Sodium (Protonix 40mg Ivpb (Pre-Docked)) 100 mls @ 200 mls/hr IVPB DAILY TRACE Last Admin: 01/16/17 18:57 Dose: 200 mls/hr Levetiracetam (Keppra Injection -) 750 mg IVPB BID TRACE Last Admin: 01/16/17 21:07 Dose: 750 mg Ondansetron HCl (Zofran Injection) 4 mg IVPB Q6H PRN PRN Reason: NAUSEA Last Admin: 01/16/17 21:07 Dose: 4 mg - Objective Vital Signs: Vital Signs Temperature 98.9 F 01/17/17 05:49 Pulse Rate 56 L 01/17/17 05:49 Respiratory Rate 20 01/17/17 05:49 Blood Pressure 86/54 01/17/17 05:49 O2 Sat by Pulse Oximetry (%) 96 01/17/17 05:00 Eyes: Yes: WNL Labs: CBC, BMP 01/17/17 06:20 01/17/17 06:20 Problem List - Problems (1) Intractable vomiting Code(s): R11.10 - VOMITING, UNSPECIFIED (2) Nausea & vomiting Code(s): R11.2 - NAUSEA WITH VOMITING, UNSPECIFIED (3) Seizure Code(s): R56.9 - UNSPECIFIED CONVULSIONS Assessment/Plan HX of seizures remotely, now with breakthrough events , rpt HD CT (-) was off tegretol, started on keppra 750BID in house , though another event yesterday--> inc to 1000BID will FU, ideally needs to be seizure free > [address] Dhaliwal [phone]
[2017-01-17] MEDS: PANTOPRAZOLE SODIUM 100 ML IVPB SCH (10:37)
[2017-01-17] MEDS: levETIRAcetam 500 MG TABLET (FP) PO SCH ×2 (10:37→21:18)
[2017-01-17] MEDS: D5-1/2NS+20 MEQ KCL - 1,000 ML IV SCH ×2 (13:26→15:45)
[2017-01-17] MEDS ORDERED: POTASSIUM CHLORIDE TABS 20 MEQ TABLET.ER (FP) PO ONE (14:00)
--- NOTE | 2017-01-17 14:28 | PN ---
Physical Exam: SUBJECTIVE: Patient seen and examined by me at bedside. No overnight events noted. Patient had no seizure activities overnight and no vomiting. Patient reports she does not remember what happened but feels much better now. She still feels a little nauseated but is eating ice chips without difficulty. She wants to try to eat and see how she does. She just went for an EEG. Otherwise, patient denies fever, chills, shortness of breath, headache, chest pain, abdominal pain. OBJECTIVE: Vital Signs Period Temp Pulse Resp BP Sys/Wahl Pulse Ox Last 24 Hr 97.8 F-98.9 F 56-86 18-20 86-142/40-91 96-98 GENERAL: The patient is awake, alert, and fully oriented, in no acute distress. LUNGS: Breath sounds equal, clear to auscultation bilaterally, no wheezes, no crackles, no accessory muscle use. HEART: Regular rate and rhythm, normal S1 and S2 without murmur, rub or gallop. ABDOMEN: Soft, nontender, nondistended, normoactive bowel sounds, no guarding, no rebound, no hepatosplenomegaly, no masses. EXTREMITIES: 2+ pulses, warm, well-perfused, no edema. NEUROLOGICAL: Motor strength 5/5 throughout, sensory intact. Normal speech. Laboratory Results - last 24 hr 01/16/17 01/17/17 01/17/17 20:45 06:20 06:20 WBC 8.8 RBC 4.20 Hgb 11.9 D Hct 35.1 MCV 83.6 MCHC 33.8 RDW 14.9 Plt Count 191 D MPV 8.6 Sodium 141 Potassium 3.3 L Chloride 106 Carbon Dioxide 30 D Anion Gap 5 L BUN 7 D Creatinine 0.7 D Creat Clearance w eGFR > 60 Random Glucose 83 D Calcium 8.6 Total Bilirubin 0.6 D AST 17 ALT 13 Alkaline Phosphatase 43 L D Total Protein 6.0 L D Albumin 3.4 D Opiates Screen Negative Methadone Screen Negative Barbiturate Screen Negative Phencyclidine Screen Negative Ur Amphetamines Screen Negative MDMA (Ecstasy) Screen Negative Benzodiazepines Screen Negative Cocaine Screen Negative U Marijuana (THC) Screen Positive Active Medications Generic Name Dose Route Start Last Admin Trade Name Freq PRN Reason Stop Dose Admin Potassium Chloride/Dextrose/Sod Cl 1,000 mls @ 75 mls/hr 01/15/17 14:05 13:26 D5-1/2ns+20 Meq Kcl - IV Not Given ASDIR TRACE Pantoprazole Sodium 100 mls @ 200 mls/hr 01/16/17 18:00 01/17/17 10:37 Protonix 40mg Ivpb (Pre-Docked) IVPB 200 mls/hr DAILY TRACE Administration Levetiracetam 1,000 mg 01/17/17 10:00 01/17/17 10:37 Keppra - PO 1,000 mg BID TRACE Administration Ondansetron HCl 4 mg 01/15/17 00:29 01/16/17 21:07 Zofran Injection IVPB 4 mg Q6H PRN Administration NAUSEA IMAGES: HEAD CT (01/14/17) and (01/16/17): No acute pathology ABDOMINAL CT (01/14/17): No acute diverticulitis. No acute pathology ASSESSMENT/PLAN: Patient is a 41 year old female with a PMHx of seizure disorder, possible epilepsy?, who has been off her medications for a year who presented with gastroenteritis symptoms and then had seizure activities. Patient admitted for further management and monitoring. Seizure Disorder -Possible Epilepsy -Has been off Tegretol for over a year after delivering -Was given a loading dose of 1500mg Keppra -EEG done today. Waiting for reults -Neurology consult appreciated -Will begin patient on Keppra 1000mg BID -Need to be seizure free for 24 hours before discharge Abdominal pain, Nausea, Vomiting- Improving -Likely secondary to Gastroenteritis -Zofran 4mg IVPB Q6H PRN -IV Fluids with D5-NS @75mls/hr -Advance diet as tolerated Hypokalemia -Secondary to vomiting -Potassium chloride 40meq po if tolerated -Will continue to monitor F/E/N -IV Fluids with D5-NS @75mls/hr -Hypokalemia -Clear Diet Prophylaxis -Low risk. EAM Disposition -Started on Keppra. EEG done today. Needs to be seizure free for 24 hours before discharge. Visit type - Emergency Visit Emergency Visit: Yes ED Registration Date: 01/14/17 Care time: The patient presented to the Emergency Department on the above date and was hospitalized for further evaluation of their emergent condition. - New Patient This patient is new to me today: No - Critical Care Critical Care patient: No
--- NOTE | 2017-01-17 15:28 | PN ---
Progress Note (short form) - Note Progress Note: I spoke with Dr. Rodríguez, her private neurologist at [facility] who reports last seeing her in October last year. She had a normal EEG in 2013, but he was under the impression that she has epilepsy rather than non-epileptic seizures. She had been on Depakote prior to Tegretol, but tegretol for years. He wasn't certain of the type as he had only one eeg on record and it was negative. Problem List - Problems (1) Seizure Code(s): R56.9 - UNSPECIFIED CONVULSIONS
[2017-01-17] MEDS ORDERED: ACETAMINOPHEN 325 MG TABLET (FP) PO PRN (18:20)
--- NOTE | 2017-01-17 18:27 | PN ---
Teaching Attending Note Name of Resident: Vonnie Biggs ATTENDING PHYSICIAN STATEMENT I saw and evaluated the patient. I reviewed the resident's note and discussed the case with the resident. I agree with the resident's findings and plan as documented. SUBJECTIVE:states nausea & vomiting has resolved. tolerating liquid diet. states she has had seizures under stressful situations since she was 15 years ago. has never been on anti-seizure medications and was started last year just prior to a procedure that she was supposed to have done which was cancelled since she was . she stopped the medication at that time as well. ( seizure at 15 and then with 3 of her 4 pregnancies) currently c/o some mild tenderness in the legs. denies CP, SOb,fever, chills, N/V/C/D OBJECTIVE: Last Vital Signs Temp Pulse Resp BP Pulse Ox 98.1 F 72 20 106/60 96 01/17/17 14:17 01/17/17 14:17 01/17/17 08:00 01/17/17 14:01/17/17 08:00 General NAD CV S1 S2 RRR no murmur/rub/gallop Lungs CTA B/L no wheezing/rales/rhonchi Abdomen soft NT/ND normoactive BS Skin bruising to top of L ear. small ecchymosis to lateral L thigh ASSESSMENT AND PLAN: 41yo F with PMH seizure disorder and H. pylori who presented to the ER with abdominal pain, nausea, vomiting followed by seizure activity. 1. Seizure-likely induced from dehydration from vomiting. last seizure activity noted in the evening, none since then. keppra increased to 1g BID today. EEG done awaiting read. appreciate neuro input. will cont to monitor for seizure like activity. tylenol prn for pain (ecchymosis likely due to fall from seizure) 2. vomiting- due to viral gastroenteritis vs THC induced. resolved. tolerating liquid diet. will advance to regular diet. Cx reported as negative. 3. Lactic acidemia secondary to seizure- resolved 4. Hypokalemia- po given. check mg level 5. d/c planning in the AM pending seizure free for 24H. answered all questions. family present at bedside. verbalized agreement with plan.
[2017-01-18] MEDS: D5-1/2NS+20 MEQ KCL - 1,000 ML IV SCH (06:14)
[2017-01-18 08:45] LABS: CALCIUM 8.7 mg/dL (8.5-10.1); COCKROFT - GAULT 108.987; CREATININE 0.7 mg/dL (0.55-1.02); MAGNESIUM 2.2 mg/dL (1.8-2.4)
[2017-01-18] MEDS: levETIRAcetam 500 MG TABLET (FP) PO SCH (09:59)
--- NOTE | 2017-01-18 10:02 | PN ---
Teaching Attending Note Name of Resident: Vonnie Biggs ATTENDING PHYSICIAN STATEMENT I saw and evaluated the patient. I reviewed the resident's note and discussed the case with the resident. I agree with the resident's findings and plan as documented. SUBJECTIVE:currently asymptomatic. no seizure activity >24H. tolerating regular diet. denies Cp,SOB,fever, chills, N/V/C/D OBJECTIVE: Last Vital Signs Temp Pulse Resp BP Pulse Ox 98.4 F 50 L 20 94/50 97 01/18/17 06:19 01/18/17 06:19 01/18/17 06:19 01/18/17 06:19 01/18/17 05:00 General NAD Abdomen soft NT/ND normoactive BS ASSESSMENT AND PLAN: 41yo F with PMH seizure disorder and H. pylori who presented to the ER with abdominal pain, nausea, vomiting followed by seizure activity. 1. Seizure-likely induced from dehydration from vomiting. seizure free >24H. EEG done yesterday no reading at this time. will d/c on keppra 1g BID, will need to f/u with neurologist next week (either private or one seen here). no driving or operating heavy machinery until cleared by neurology. 2. vomiting- due to viral gastroenteritis vs THC induced. resolved. tolerating regular diet 3. Lactic acidemia secondary to seizure- resolved 4. Hypokalemia- resolved 5. d/c home today. counseled on need to f/u with neurology and medication compliance. verbalized understanding and agreement with plan
[2017-01-18] MEDS: PANTOPRAZOLE SODIUM 100 ML IVPB SCH (10:03)
--- NOTE | 2017-01-18 10:30 | DS ---
Physical Exam: SUBJECTIVE: Patient seen and examined by me at bedside. No overnight events noted. Patient reports no seizures >24 hours and no nausea with vomiting. She is able to tolerate solid foods and reports feeling much better. Otherwise, patient denies fever, chills, nausea, vomiting, abdominal pain, chest pain, palpitations. OBJECTIVE: Vital Signs Period Temp Pulse Resp BP Sys/Wahl Pulse Ox Last 24 Hr 97.9 F-98.4 F 49-72 20-20 94-106/40-85 97-97 PHYSICAL EXAM GENERAL: The patient is awake, alert, and fully oriented, in no acute distress. LUNGS: Breath sounds equal, clear to auscultation bilaterally, no wheezes, no crackles, no accessory muscle use. HEART: Regular rate and rhythm, normal S1 and S2 without murmur, rub or gallop. ABDOMEN: Soft, nontender, nondistended, normoactive bowel sounds, no guarding, no rebound, no hepatosplenomegaly, no masses. EXTREMITIES: 2+ pulses, warm, well-perfused, no edema. NEUROLOGICAL: Motor strength 5/5 throughout, sensory intact. Normal speech. LABS Laboratory Results - last 24 hr 01/18/17 07:30 Sodium 142 Potassium 4.1 D Chloride 106 Carbon Dioxide 27 Anion Gap 9 BUN 6 L Creatinine 0.7 Random Glucose 90 Calcium 8.7 Magnesium 2.2 IMAGES: HEAD CT (01/14/17) and (01/16/17): No acute pathology ABDOMINAL CT (01/14/17): No acute diverticulitis. No acute pathology HOSPITAL COURSE: Patient is a 41 year old female with a PMHx of seizure disorder who presented with nausea, vomiting, abdominal pain, and seizure activities. Patient was admitted for seizure disorder and possible gastroenteritis. Patient reports the nausea, vomiting, and abdominal pain began suddenly and then afterwards the seizure happened, Which prompted the ED visit. HEAD CT and Abdominal CT was done, which were both negative. Throughout the course of her hospital stay patient seized two times and soon after each seizure she would have intractable vomiting. From the vomiting, patient was found to be hypokalemic and was repleated with potassium chloride. When asking further history on her seizure disorder, patient reports she only had 4 seizures throughout her life with the first one being at the age 15 and the rest when delivered her children. Each seizure was stress related. She was placed on Tegretol but stopped it before giving . Patient has not been on any seizure medications for a year. Neurology consult was placed and recommended placing patient on Keppra 1000mg BID. She was monitored on the floors and has been seizure free for over 24 hours. She has had no episodes of vomiting in over 24 hours. Patient's hypokalemia resolved and she was able to tolerate solid food without vomiting. Patient advised to follow up with neurology this week and to avoid any driving or heavy lifting until neurology clears her. Patient also advised to follow up with her primary care physician within a week. Patient stable for discharge and sent with a prescription of Keppra 1000mg BID. Date of Admission:01/14/17 Date of Discharge: 01/18/17 Minutes to complete discharge: 35 Discharge Summary Reason For Visit: SEIZURE, INTRACTABLE VOMITING Current Active Problems Abdominal pain (Acute) Intractable vomiting (Acute) Nausea & vomiting (Acute) Seizure (Acute) Condition: Stable - Instructions Diet, Activity, Other Instructions: -You may resume regular diet -You may not drive until you are cleared by the neurologist -Please follow up with the neurologist within a week -You will be sent home with a prescription of Keppra. Please pick it up from the pharmacy -You will need to follow up with your primary care doctor within a week -If you begin to have seizures or severe vomiting, return to the emergency department. Referrals: Ajay Dhaliwal DO [Staff Physician] - Disposition: HOME - Home Medications Comprehensive Discharge Medication List: Ambulatory Orders Levetiracetam [Keppra -] 1,000 mg PO BID #60 tablet 01/18/17 This patient is new to me today: No Emergency Visit: Yes ED Registration Date: 01/14/17 Care time: The patient presented to the Emergency Department on the above date and was hospitalized for further evaluation of their emergent condition. Critical Care patient: No - Discharge Referral Referred to [facility] No
[2017-01-18 11:22] VITALS: BP 93/53; PULSE 74; TEMP 98.6
--- NOTE | 2017-01-18 14:30 | PN ---
Progress Note (short form) - Note Progress Note: no seizures > 24 hours tolerating keppra + nasuea this am, but no Vomitting HD CT 01/16/17--noted, no new pathology - Current Medication List Current Medications: Active Medications Potassium Chloride/Dextrose/Sod Cl (D5-1/2ns+20 Meq Kcl -) 1,000 mls @ 75 mls/ hr IV ASDIR TRACE Last Admin: 01/16/17 20:51 Dose: 75 mls/hr Pantoprazole Sodium (Protonix 40mg Ivpb (Pre-Docked)) 100 mls @ 200 mls/hr IVPB DAILY TRACE Last Admin: 01/16/17 18:57 Dose: 200 mls/hr Levetiracetam (Keppra Injection -) 750 mg IVPB BID TRACE Last Admin: 01/16/17 21:07 Dose: 750 mg Ondansetron HCl (Zofran Injection) 4 mg IVPB Q6H PRN PRN Reason: NAUSEA Last Admin: 01/16/17 21:07 Dose: 4 mg - Objective Vital Signs: Vital Signs Temperature 98.6 F 01/18/17 09:00 Pulse Rate 74 01/18/17 09:00 Respiratory Rate 18 01/18/17 10:00 Blood Pressure 93/53 01/18/17 09:00 O2 Sat by Pulse Oximetry (%) 97 01/18/17 10:00 Eyes: Yes: WNL Labs: CBC, BMP 01/17/17 06:20 01/17/17 06:20 Problem List - Problems (1) Intractable vomiting Code(s): R11.10 - VOMITING, UNSPECIFIED (2) Nausea & vomiting Code(s): R11.2 - NAUSEA WITH VOMITING, UNSPECIFIED (3) Seizure Code(s): R56.9 - UNSPECIFIED CONVULSIONS Assessment/Plan HX of seizures remotely, now with breakthrough events , rpt HD CT (-) was off tegretol, stable on KEppra 1000BID can dc with outpt FU Dr Dhaliwal [phone] Problem List - Problems (1) Intractable vomiting Code(s): R11.10 - VOMITING, UNSPECIFIED (2) Nausea & vomiting Code(s): R11.2 - NAUSEA WITH VOMITING, UNSPECIFIED (3) Seizure Code(s): R56.9 - UNSPECIFIED CONVULSIONS
== END 2017-01-18 11:20 | disposition home or self-care (01) ==
LOC: JER 17:08 → JERBED 23:42 → UNDOADMOB 01-15 00:28 → J6S 01-15 02:52
PROVIDERS: ADMIT Internal Medicine; ATTEND Internal Medicine
PROC: 3E033GC Introduction of Other Therapeutic Substance into Peripheral Vein, Percutaneous Approach (ICD-10-PCS; principal; 2017-01-14)
PROC: 3E0337Z Introduction of Electrolytic and Water Balance Substance into Peripheral Vein, Percutaneous Approach (ICD-10-PCS; 2017-01-14)
PROC: 3E023GC Introduction of Other Therapeutic Substance into Muscle, Percutaneous Approach (ICD-10-PCS; 2017-01-14)
DX: G40.909 Epilepsy, unspecified, not intractable, without status epilepticus (principal); R10.9 Unspecified abdominal pain; R11.2 Nausea with vomiting, unspecified; K52.9 Noninfective gastroenteritis and colitis, unspecified; E87.2 Acidosis; E87.6 Hypokalemia; F41.9 Anxiety disorder, unspecified; Z87.891 Personal history of nicotine dependence
CPT/HCPCS: 36415; 70450-TC; 74177-TC; 80048; 80053; 80307; 81003; 83605; 83735; 84100; 84703; 85025; 85027; 87040; 87086; 93005; 93010; 95816; 99284-25; G0378